=== PATIENT | male | born 1965 | race Caucasian/White ===

== ENCOUNTER → 2020-03-03 | Outpatient (CLI) | payer OTHER ==
--- NOTE | 2020-03-03 12:52 | KCIC ---
CT of the cervical spine without comparison for chronic neck pain, headaches, history of arthritis. TECHNIQUE: Contiguous helical 2 mm axial images are obtained through the cervical spine. Sagittal and coronal reformations are evaluated. FINDINGS: There is straightening of the normal cervical lordosis, and there is multilevel degenerative disc disease, with bulky anterior and posterior osteophytes at C4-5 and C5-6 in particular. This likely produces at least moderate central canal stenosis at C4-5, and could be better evaluated with MRI of the cervical spine. Disc spaces at C4-5 and C5-6 are narrowed. There is no prevertebral soft tissue swelling. Visualized cervical soft tissues are grossly unremarkable. At C4-5, there is severe bilateral neural foraminal narrowing, and at C5-6 there is moderate bilateral neural foraminal narrowing. Remaining neural foramina are patent. IMPRESSION: 1. Multilevel degenerative disc disease, most notable at C4-5 and C5-6. There is likely at least moderate central canal stenosis at C4-5 and to a lesser degree at C6-5-6, and there is severe bilateral neural foraminal narrowing at C4-5 and to a lesser degree at C5-6. Further evaluation with MRI should be considered to assess for cervical cord compression. Electronically signed by: Christopher Aquino MD (03/03/2020 12:49 PM) [id number]
== END | disposition home or self-care (01) ==
LOC: KCIC CT 10:46 → EDBD 11:00
DX: M50.321 Other cervical disc degeneration at C4-C5 level (principal); M48.02 Spinal stenosis, cervical region; M40.292 Other kyphosis, cervical region; M25.78 Osteophyte, vertebrae; M19.90 Unspecified osteoarthritis, unspecified site
CPT/HCPCS: 72125